=== PATIENT | male | born 1955 ===

== ENCOUNTER 2021-06-03 09:47 | Inpatient (IN) ==
[2021-06-03] MEDS ORDERED: POTASSIUM CHLORIDE RIDER 10 MEQ/100 ML PREMIX IV PRN (09:49)
[2021-06-03] MEDS ORDERED: MAGNESIUM SULF RIDER 2 GM/50 ML PREMIX IV PRN (09:49)
[2021-06-03] MEDS ORDERED: DIAZEPAM 5 MG TABLET PO ONE (10:30)
[2021-06-03] MEDS ORDERED: diphenhydrAMINE CAP 50 MG CAPSULE PO ONE (10:30)
[2021-06-03] MEDS ORDERED: DIAZEPAM 5 MG TABLET ONE (10:36)
[2021-06-03] MEDS ORDERED: diphenhydrAMINE CAP 50 MG CAPSULE ONE (10:37)
[2021-06-03] MEDS: SODIUM CHLORIDE 0.9% 1,000 ML IV SCH ×2 (10:41→18:17)
[2021-06-03 10:43] LABS: Basophils # 0.1 10*3/uL (0.0-0.2); Basophils % 0.9 % (0.0-0.8); Eosinophils # 0.2 10*3/uL (0.0-0.87); Eosinophils % 2.6 % (0.00-10.9); Hematocrit 43.3 VOL% (42.0-52.0); Hemoglobin 14.3 GM/DL (14.0-18.0); Immature Granulocytes % 0.4 %; Immature Granulocytes Absolute 0.03 #; Lymphocytes # 1.8 10*3/uL (1.4-4.0); Lymphocytes % 21.6 % (21.2-54.2); Mean Corpuscular Volume 81.4 FL (87-102); Mean Platelet Volume 10.4 FL (9.6-12.0); Monocytes % 7.5 % (1.7-12.7); Platelet Count 235 T/CUMM (130-400); Red Blood Count 5.32 MC/CUMM (3.8-5.5); Red Cell Distribution Width 13.5 % (9.3-17.3); White Blood Count 8.2 T/CUMM (4-12)
[2021-06-03 10:53] LABS: PT Patient Result 11.4 SECS (10.5-12.0)
[2021-06-03 11:01] LABS: Calcium 9.4 MG/DL (8.5-10.1); Osmolality,Calculated 270.1 MOS/KG (273-304); Potassium 4.3 MMOL/L (3.5-5.1)
[2021-06-03] MEDS ORDERED: HEPARIN/NACL 0.9% 2 UNITS/ML 2,000 UNIT/1,000 ML BAG IV ONE (11:08)
[2021-06-03] MEDS ORDERED: LIDOCAINE 1% 20 ML VIAL ONE (11:08)
[2021-06-03] MEDS ORDERED: NITROGLYCERIN DRIP 50 MG/250 ML BOTTLE IV ONE (11:10)
[2021-06-03] MEDS ORDERED: VERAPAMIL 5 MG/2 ML VIAL ONE (11:10)
[2021-06-03] MEDS ORDERED: MIDAZOLAM 2 MG/2 ML VIAL ONE (11:23)
[2021-06-03] MEDS ORDERED: fentaNYL 100 MCG/2 ML VIAL ONE (11:23)
[2021-06-03] MEDS ORDERED: HEPARIN 5,000 UNIT/1 ML VIAL ONE (11:31)
[2021-06-03] MEDS ORDERED: NITROGLYCERIN SL 0.4 MG TABLET SL PRN (12:10)
[2021-06-03] MEDS ORDERED: ZALEPLON 5 MG CAPSULE PO PRN (12:10)
[2021-06-03] MEDS ORDERED: ACETAMINOPHEN 325 MG TABLET PO PRN (12:10)
[2021-06-03] MEDS ORDERED: ONDANSETRON 4 MG/2 ML VIAL IV PRN (12:10)
[2021-06-03] MEDS ORDERED: allopurinoL 300 MG TABLET PO PRN (12:14)
[2021-06-03] MEDS ORDERED: hydrALAZINE 20 MG/1 ML VIAL IV PRN (12:14)
[2021-06-03] MEDS: PANTOPRAZOLE 40 MG TABLET PO SCH (15:17)
[2021-06-03] MEDS ORDERED: diphenhydrAMINE CAP 25 MG CAPSULE PO PRN (16:11)
[2021-06-03] MEDS ORDERED: MAGNESIUM HYDROXIDE SUSP 30 ML UDCUP PO PRN (16:12)
[2021-06-03] MEDS: FAMOTIDINE 20 MG TABLET PO SCH (21:23)
[2021-06-03] MEDS: ROSUVASTATIN 20 MG TABLET PO SCH (21:23)
[2021-06-03] MEDS: CITALOPRAM 20 MG TABLET PO SCH (21:24)
[2021-06-03] MEDS: carvediloL 3.125 MG TABLET PO SCH (21:24)
[2021-06-03] MEDS: amLODIPine 5 MG TABLET PO SCH (21:24)
[2021-06-03] MEDS: ASCORBIC ACID 500 MG TABLET PO SCH (21:24)
[2021-06-04 05:27] LABS: Basophils # 0.1 10*3/uL (0.0-0.2); Basophils % 0.8 % (0.0-0.8); Eosinophils # 0.4 10*3/uL (0.0-0.87); Eosinophils % 4.8 % (0.00-10.9); Hematocrit 43.5 VOL% (42.0-52.0); Hemoglobin 13.9 GM/DL (14.0-18.0); Immature Granulocytes % 0.3 %; Immature Granulocytes Absolute 0.03 #; Lymphocytes # 2.1 10*3/uL (1.4-4.0); Lymphocytes % 24.1 % (21.2-54.2); Mean Platelet Volume 9.8 FL (9.6-12.0); Monocytes % 9.6 % (1.7-12.7); Neutrophils % 60.4 % (38.7-73.9); Platelet Count 221 T/CUMM (130-400); Red Blood Count 5.18 MC/CUMM (3.8-5.5); Red Cell Distribution Width 13.5 % (9.3-17.3); White Blood Count 8.7 T/CUMM (4-12)
[2021-06-04 05:43] LABS: Calcium 9.1 MG/DL (8.5-10.1); Osmolality,Calculated 275.7 MOS/KG (273-304); Potassium 4.1 MMOL/L (3.5-5.1)
[2021-06-04] MEDS ORDERED: NON-FORMULARY MEDICATION (Aspirin 81 mg Tablet) PO SCH (09:00)
[2021-06-04] MEDS: ASCORBIC ACID 500 MG TABLET PO SCH ×2 (09:45→21:20)
[2021-06-04] MEDS: PANTOPRAZOLE 40 MG TABLET PO SCH (09:45)
[2021-06-04] MEDS: FAMOTIDINE 20 MG TABLET PO SCH ×2 (09:45→21:20)
[2021-06-04] MEDS: carvediloL 3.125 MG TABLET PO SCH ×2 (09:45→21:20)
[2021-06-04] MEDS: ASPIRIN EC 81 MG TABLET PO SCH (09:46)
[2021-06-04] MEDS ORDERED: DEXTROSE 50% 25 GM/50 ML VIAL IV PRN (09:55)
[2021-06-04] MEDS ORDERED: GLUCAGON 1 MG VIAL IM PRN (09:55)
[2021-06-04] MEDS: SODIUM CHLORIDE 0.9% 1,000 ML IV SCH (11:13)
[2021-06-04] MEDS: ALPRAZolam 0.25 MG TABLET PO PRN (18:28)
[2021-06-04] MEDS: CHLORHEXIDINE 0.12% ORAL RINSE 60 ML BOTTLE SWISH/SPIT SCH (21:19)
[2021-06-04] MEDS: ROSUVASTATIN 20 MG TABLET PO SCH (21:20)
[2021-06-04] MEDS: CITALOPRAM 20 MG TABLET PO SCH (21:21)
[2021-06-04] MEDS: amLODIPine 5 MG TABLET PO SCH (21:21)
[2021-06-05 04:43] LABS: ABG Base Excess 1.8 MMOL/L (-2.5-2.5); ABG HCO3 25.9 MMOL/L (20-26); ABG Oxygen Saturation 94.1 % (95-100); ABG PCO2 37.6 MM HG (35-48); ABG PH 7.442 (7.35-7.45); ABG PO2 71.2 MM HG (80-95); ABG TCO2 21.8 MMOL/L (23-27)
[2021-06-05 05:44] LABS: Basophils # 0.1 10*3/uL (0.0-0.2); Basophils % 0.8 % (0.0-0.8); Eosinophils # 0.5 10*3/uL (0.0-0.87); Hematocrit 44.9 VOL% (42.0-52.0); Hemoglobin 14.6 GM/DL (14.0-18.0); Immature Granulocytes % 0.2 %; Immature Granulocytes Absolute 0.02 #; Lymphocytes # 2.4 10*3/uL (1.4-4.0); Lymphocytes % 26.4 % (21.2-54.2); Mean Corpuscular HGB Conc 32.5 GM/DL (32-36); Mean Corpuscular Volume 83.8 FL (87-102); Mean Platelet Volume 10.5 FL (9.6-12.0); Monocytes % 8.4 % (1.7-12.7); Neutrophils % 59.2 % (38.7-73.9); Platelet Count 272 T/CUMM (130-400); Red Blood Count 5.36 MC/CUMM (3.8-5.5); Red Cell Distribution Width 13.6 % (9.3-17.3); White Blood Count 9.1 T/CUMM (4-12)
[2021-06-05 06:07] LABS: Calcium 9.2 MG/DL (8.5-10.1); Osmolality,Calculated 280.4 MOS/KG (273-304); Potassium 3.8 MMOL/L (3.5-5.1)
[2021-06-05 06:10] LABS: Albumin 3.9 G/DL (3.4-5.0); Bilirubin,Total 1.7 MG/DL (0.20-1.00); Calcium 9.4 MG/DL (8.5-10.1); Osmolality,Calculated 276.7 MOS/KG (273-304); Potassium 3.7 MMOL/L (3.5-5.1); Total Protein 7.3 G/DL (6.4-8.2)
[2021-06-05 06:28] LABS: Risk Ratio 4.71; VLDL Cholesterol 20.6 MG/DL
[2021-06-05] MEDS: FAMOTIDINE 20 MG TABLET PO SCH ×2 (08:42→21:31)
[2021-06-05] MEDS: carvediloL 3.125 MG TABLET PO SCH ×2 (08:42→21:31)
[2021-06-05] MEDS: CHLORHEXIDINE 0.12% ORAL RINSE 60 ML BOTTLE SWISH/SPIT SCH ×2 (08:42→21:39)
[2021-06-05] MEDS: ASPIRIN EC 81 MG TABLET PO SCH (08:42)
[2021-06-05] MEDS: PANTOPRAZOLE 40 MG TABLET PO SCH (08:42)
[2021-06-05] MEDS: ASCORBIC ACID 500 MG TABLET PO SCH ×2 (08:42→21:31)
[2021-06-05] MEDS: SODIUM CHLORIDE 0.9% 1,000 ML IV SCH (10:10)
[2021-06-05] MEDS ORDERED: amLODIPine 10 MG TABLET PO ONE (10:19)
[2021-06-05] MEDS ORDERED: DIAZEPAM 5 MG TABLET PO ONE (11:12)
[2021-06-05] MEDS: CHLORHEXIDINE 4% SOLN 118 ML BOTTLE TOP SCH ×2 (15:21→21:39)
[2021-06-05] MEDS: ALPRAZolam 0.25 MG TABLET PO PRN (18:20)
[2021-06-05] MEDS: ROSUVASTATIN 20 MG TABLET PO SCH (21:31)
[2021-06-05] MEDS: CITALOPRAM 20 MG TABLET PO SCH (21:31)
[2021-06-06] MEDS: CHLORHEXIDINE 4% SOLN 118 ML BOTTLE TOP SCH ×2 (04:38→09:28)
[2021-06-06] MEDS ORDERED: VANCOMYCIN 500 MG VIAL ONE (05:31)
[2021-06-06] MEDS ORDERED: VANCOMYCIN 1,000 MG VIAL ONE (05:31)
[2021-06-06] MEDS ORDERED: PAPAVERINE 60 MG/2 ML VIAL ONE (05:31)
[2021-06-06] MEDS ORDERED: CEFUROXIME INJ 1,500 MG in SODIUM CHLORIDE 0.9% 100 ML IV ONE (06:00)
[2021-06-06] MEDS ORDERED: DIAZEPAM 5 MG TABLET PO ONE (06:00)
[2021-06-06] MEDS ORDERED: MIDAZOLAM 10 MG/2 ML VIAL ONE ×4 (06:01→06:02)
[2021-06-06] MEDS ORDERED: SUFentanil 250 MCG/5 ML AMP ONE ×2 (06:02)
[2021-06-06] MEDS ORDERED: HEPARIN/NACL 0.9% 2 UNITS/ML 1,000 UNIT/500 ML BAG IV ONE (06:03)
[2021-06-06 07:36] LABS: ABG Base Excess -0.9 MMOL/L (-2.5-2.5); ABG HCO3 23.4 MMOL/L (20-26); ABG Oxygen Saturation 99.1 % (95-100); ABG PCO2 37.8 MM HG (35-48); ABG PO2 381.1 MM HG (80-95); ABG TCO2 24.6 MMOL/L (23-27); Glucose Heart Surgery 107 MG/DL (74-106); Hemoglobin Heart Surgery 14.1 G/DL (14.0-18.0); Ionized Calcium Arterial 1.15 MMOL/L (1.21-1.46); PCO2 Patient Temp Arterial 37.8 MMHG; PO2 Patient Temp Arterial 381.1 MM HG; Patient Temperature 37 CELCIUS; Sodium Heart/CVR 136 MMOL/L (135-145)
[2021-06-06] MEDS ORDERED: TISSUE ADHESIVE 1 EACH APPLICATOR TOP ONE (07:42)
[2021-06-06 07:43] LABS: Bilirubin,Urine Negative (Negative); Blood, Urine Negative (Negative); Glucose,Urine (UA) Negative (Negative); Ketones,Urine Negative (Negative); Nitrite,Urine Negative (Negative); Protein,Urine Negative; RBC,Urine 6 /HPF (0-4); Urine Appearance CLEAR (Clear); Urine Color Yellow (Yellow); Urine Specific Gravity 1.016 (1.001-1.035); Urine Urobilinogen < 2.0 EU/DL (0.2-1.0)
[2021-06-06] MEDS ORDERED: PHENYLEPHRINE DRIP 40 MG/250 ML PREMIX IV ONE (07:48)
[2021-06-06] MEDS ORDERED: ALBUMIN 5% 25.0 GM/500 ML VIAL IV ONE (07:48)
[2021-06-06] MEDS ORDERED: POTASSIUM CHLORIDE RIDER 20 MEQ/100 ML PREMIX IV ONE (07:48)
[2021-06-06] MEDS ORDERED: CALCIUM CHLORIDE 1,000 MG/10 ML SYRINGE IV ONE (07:49)
[2021-06-06] MEDS ORDERED: NITROPRUSSIDE 50 MG/2 ML VIAL ONE (07:49)
[2021-06-06] MEDS ORDERED: AMINOCAPROIC ACID 5,000 MG/20 ML VIAL ONE (07:57)
[2021-06-06] MEDS ORDERED: CALCIUM CHLORIDE 1,000 MG/10 ML VIAL IV ONE (07:57)
[2021-06-06] MEDS ORDERED: VECURONIUM 10 MG VIAL IV ONE (07:57)
[2021-06-06] MEDS ORDERED: SODIUM CHLORIDE 0.9% 250 ML IV ONE (07:57)
[2021-06-06] MEDS ORDERED: MINERAL OIL/PETROLATUM OPH OINT 3.5 GM TUBE ONE (07:57)
[2021-06-06] MEDS ORDERED: SODIUM CHLORIDE 0.9% 2,000 ML IV ONE (07:57)
[2021-06-06] MEDS ORDERED: LIDOCAINE 2% 5 ML VIAL ONE ×2 (07:57→10:34)
[2021-06-06] MEDS ORDERED: PHENYLEPHRINE DRIP 20 MG/250 ML PREMIX IV ONE (07:57)
[2021-06-06] MEDS ORDERED: SEVOFLURANE 1 UNIT/15 MINUTE INH ONE (07:57)
[2021-06-06] MEDS ORDERED: LACTATED RINGERS 1,000 ML IV ONE (07:57)
[2021-06-06] MEDS ORDERED: ePHEDrine 50 MG/ML VIAL ONE (07:58)
[2021-06-06] MEDS ORDERED: SODIUM CHLORIDE 0.9% 100 ML IV ONE (08:10)
[2021-06-06] MEDS ORDERED: NITROGLYCERIN DRIP 50 MG/250 ML BOTTLE IV ONE (08:42)
[2021-06-06] MEDS ORDERED: amLODIPine 10 MG TABLET PO SCH (09:00)
[2021-06-06 09:04] LABS: Hematocrit Heart Surgery 27.1 PERCENT (42-52); Hemoglobin Heart Surgery 8.7 G/DL (14.0-18.0); PH Patient Temp Venous 7.384; PO2 Patient Temp Venous 48.5 MM HG; Potassium Heart/CVR 4.9 MMOL/L (3.5-5.1); VBG HCO3 23.3 MEQ/L (24-28); VBG PH 7.384; VBG PO2 48.5 MMHG (17-40); VBG Total CO2 22.2 MMOL/L
[2021-06-06] MEDS: SODIUM CHLORIDE 0.9% 1,000 ML IV SCH (09:28)
[2021-06-06] MEDS: PANTOPRAZOLE 40 MG TABLET PO SCH (09:28)
[2021-06-06] MEDS: carvediloL 3.125 MG TABLET PO SCH (09:28)
[2021-06-06] MEDS: ASCORBIC ACID 500 MG TABLET PO SCH (09:28)
[2021-06-06] MEDS: CHLORHEXIDINE 0.12% ORAL RINSE 60 ML BOTTLE SWISH/SPIT SCH ×2 (09:28→20:35)
[2021-06-06] MEDS: FAMOTIDINE 20 MG TABLET PO SCH (09:28)
[2021-06-06] MEDS: ASPIRIN EC 81 MG TABLET PO SCH (09:28)
[2021-06-06 09:30] LABS: Hematocrit Heart Surgery 31.5 PERCENT (42-52); Hemoglobin Heart Surgery 10.2 G/DL (14.0-18.0); PCO2 Patient Temp Venous 36.2 MM HG; PH Patient Temp Venous 7.423; Potassium Heart/CVR 4.9 MMOL/L (3.5-5.1); VBG Base Excess -0.4 MEQ/L (0-4); VBG HCO3 23.8 MEQ/L (24-28); VBG Oxygen Saturation 83.4 %; VBG PCO2 36.2 MMHG (41-51); VBG PH 7.423; VBG Total CO2 21.5 MMOL/L
[2021-06-06 10:02] LABS: Hematocrit Heart Surgery 33.5 PERCENT (42-52); Hemoglobin Heart Surgery 10.9 G/DL (14.0-18.0); PCO2 Patient Temp Venous 34.5 MM HG; PH Patient Temp Venous 7.437; PO2 Patient Temp Venous 36.5 MM HG; Potassium Heart/CVR 5.1 MMOL/L (3.5-5.1); VBG Base Excess -0.4 MEQ/L (0-4); VBG HCO3 23.6 MEQ/L (24-28); VBG Oxygen Saturation 68.8 %; VBG PCO2 34.5 MMHG (41-51); VBG PH 7.437; VBG PO2 36.5 MMHG (17-40); VBG Total CO2 21.1 MMOL/L
[2021-06-06] MEDS ORDERED: FUROSEMIDE 20 MG/2 ML VIAL ONE ×2 (10:27→10:35)
[2021-06-06] MEDS ORDERED: METOPROLOL TARTRATE 5 MG/5 ML VIAL IV ONE (10:27)
[2021-06-06 10:28] LABS: ABG HCO3 22.8 MMOL/L (20-26); ABG Oxygen Saturation 99.1 % (95-100); ABG PCO2 37.5 MM HG (35-48); ABG PH 7.388 (7.35-7.45); ABG TCO2 20.4 MMOL/L (23-27); Glucose Heart Surgery 197 MG/DL (74-106); Hematocrit Heart Surgery 33.4 PERCENT (42-52); Hemoglobin Heart Surgery 10.8 G/DL (14.0-18.0); Ionized Calcium Arterial 1.37 MMOL/L (1.21-1.46); PCO2 Patient Temp Arterial 37.5 MMHG; PH Patient Temp Arterial 7.388; Patient Temperature 37 CELCIUS; Sodium Heart/CVR 133 MMOL/L (135-145)
[2021-06-06] MEDS ORDERED: ALBUMIN 5% 12.5 GM/250 ML VIAL IV ONE (10:28)
[2021-06-06] MEDS ORDERED: MAGNESIUM SULFATE 5 GM/10 ML VIAL IV ONE (10:34)
[2021-06-06] MEDS ORDERED: methylPREDNISolone SOD SUC 1,000 MG/8 ML VIAL ONE (10:34)
[2021-06-06] MEDS ORDERED: ALBUMIN 25% 25 GM/100 ML VIAL IV ONE (10:34)
[2021-06-06] MEDS ORDERED: PROTAMINE SULFATE 250 MG/25 ML VIAL IV ONE (10:35)
[2021-06-06] MEDS ORDERED: PROTAMINE SULFATE 50 MG/5 ML VIAL IV ONE ×2 (10:35→10:45)
[2021-06-06] MEDS ORDERED: SODIUM BICARBONATE 50 MEQ/50 ML VIAL IV ONE (10:35)
[2021-06-06] MEDS ORDERED: MANNITOL 100 GM/500 ML BAG IV ONE (10:35)
[2021-06-06] MEDS ORDERED: DEXTROSE 5% KCL 20 MEQ 20 MEQ/1,000 ML BAG IV ONE (10:35)
[2021-06-06] MEDS ORDERED: HEPARIN 10,000 UNIT/10 ML VIAL ONE (10:35)
[2021-06-06] MEDS ORDERED: hydrALAZINE 20 MG/1 ML VIAL ONE (10:41)
[2021-06-06] MEDS ORDERED: INSULIN REGULAR 100 UNIT/ML IV ONE (11:16)
[2021-06-06] MEDS ORDERED: POTASSIUM CHLORIDE RIDER 10 MEQ/100 ML PREMIX IV PRN (11:16)
[2021-06-06] MEDS ORDERED: LACTATED RINGERS 250 ML IV PRN (11:16)
[2021-06-06] MEDS ORDERED: CHLORHEXIDINE 4% SOLN 118 ML BOTTLE TOP PRN (11:16)
[2021-06-06] MEDS ORDERED: INSULIN REGULAR 100 UNIT/ML IV PRN (11:16)
[2021-06-06] MEDS ORDERED: ACETAMINOPHEN 650 MG SUPP RECTAL PRN (11:16)
[2021-06-06] MEDS ORDERED: VECURONIUM 10 MG VIAL IV PRN ×2 (11:16)
[2021-06-06] MEDS ORDERED: MAGNESIUM SULF RIDER 2 GM/50 ML PREMIX IV PRN (11:16)
[2021-06-06] MEDS ORDERED: NITROPRUSSIDE 100 MG in DEXTROSE 5% 250 ML IV PRN (11:16)
[2021-06-06] MEDS ORDERED: MAGNESIUM SULF RIDER 4 GM/100 ML PREMIX IV PRN (11:16)
[2021-06-06] MEDS ORDERED: PHENYLEPHRINE DRIP 40 MG/250 ML PREMIX IV PRN (11:16)
[2021-06-06] MEDS ORDERED: DEXTROSE 50% 25 GM/50 ML VIAL IV PRN ×2 (11:16)
[2021-06-06] MEDS ORDERED: MIDAZOLAM 10 MG/2 ML VIAL IV PRN (11:16)
[2021-06-06] MEDS ORDERED: ONDANSETRON 4 MG/2 ML VIAL IV PRN (11:16)
[2021-06-06] MEDS ORDERED: CALCIUM CHLORIDE 1,000 MG/10 ML SYRINGE IV PRN (11:16)
[2021-06-06] MEDS: LACTATED RINGERS 1,000 ML IV PRN ×3 (11:20→15:27)
[2021-06-06] MEDS ORDERED: SODIUM CHLORIDE 0.45% 1,000 ML IV SCH ×2 (11:30)
[2021-06-06] MEDS ORDERED: INSULIN REGULAR DRIP 100 ML IV SCH (11:30)
[2021-06-06 11:45] LABS: ABG Base Excess -2.5 MMOL/L (-2.5-2.5); ABG HCO3 22.3 MMOL/L (20-26); ABG Oxygen Saturation 98.2 % (95-100); ABG PCO2 39.2 MM HG (35-48); ABG PH 7.367 (7.35-7.45); ABG TCO2 20.1 MMOL/L (23-27); Glucose Heart Surgery 148 MG/DL (74-106); Hematocrit Heart Surgery 35.9 PERCENT (42-52); Hemoglobin Heart Surgery 11.7 G/DL (14.0-18.0); Potassium Heart/CVR 3.8 MMOL/L (3.5-5.1)
[2021-06-06] MEDS: POTASSIUM CHLORIDE RIDER 20 MEQ/100 ML PREMIX IV PRN ×3 (12:00→16:01)
[2021-06-06 12:03] LABS: INR 1.2; PT Patient Result 12.9 SECS (10.5-12.0); Partial Thromboplastin Time 29.5 SECS (23.9-33.8)
[2021-06-06 12:10] LABS: CKMB % 9.7 %
[2021-06-06 12:13] LABS: High Sensitive Troponin I* 7386.5 ng/L (0-78)
[2021-06-06 12:16] LABS: Albumin 3.2 G/DL (3.4-5.0); Calcium 8.5 MG/DL (8.5-10.1); Osmolality,Calculated 280.5 MOS/KG (273-304); Potassium 3.8 MMOL/L (3.5-5.1); Total Protein 5.6 G/DL (6.4-8.2)
[2021-06-06 12:18] LABS: Basophils % 0.3 % (0.0-0.8); Eosinophils # 0.2 10*3/uL (0.0-0.87); Eosinophils % 1.5 % (0.00-10.9); Hematocrit 34.6 VOL% (42.0-52.0); Hemoglobin 11.4 GM/DL (14.0-18.0); Immature Granulocytes % 0.6 %; Immature Granulocytes Absolute 0.07 #; Lymphocytes # 1.1 10*3/uL (1.4-4.0); Lymphocytes % 9.8 % (21.2-54.2); Mean Corpuscular HGB Conc 32.9 GM/DL (32-36); Mean Corpuscular Volume 83.8 FL (87-102); Mean Platelet Volume 10.3 FL (9.6-12.0); Monocytes % 6.3 % (1.7-12.7); Neutrophils % 81.5 % (38.7-73.9); Platelet Count 205 T/CUMM (130-400); Red Blood Count 4.13 MC/CUMM (3.8-5.5); Red Cell Distribution Width 13.2 % (9.3-17.3); White Blood Count 11.5 T/CUMM (4-12)
[2021-06-06 12:37] LABS: Band Neutrophils 2 % (0-10); Eosinophils 4 % (0-10); Lymphocytes 9 % (20-55); Segmented Neutrophils 83 % (50-85); Total Cells Counted 100
[2021-06-06 12:39] LABS: Atypical Lymphocytes Few; Platelet Estimate Adequate
[2021-06-06 12:40] LABS: Hypochromasia 1+; Microcytosis 1+
[2021-06-06 13:28] LABS: ABG Base Excess -2.7 MMOL/L (-2.5-2.5); ABG HCO3 22.2 MMOL/L (20-26); ABG Oxygen Saturation 98.6 % (95-100); ABG PCO2 38.9 MM HG (35-48); ABG PH 7.367 (7.35-7.45); Glucose Heart Surgery 143 MG/DL (74-106); Hematocrit Heart Surgery 35.4 PERCENT (42-52); Hemoglobin Heart Surgery 11.5 G/DL (14.0-18.0); Potassium Heart/CVR 4.1 MMOL/L (3.5-5.1)
[2021-06-06] MEDS: ALBUMIN 5% 12.5 GM/250 ML VIAL IV PRN ×2 (14:04→15:40)
[2021-06-06] MEDS: MIDAZOLAM 2 MG/2 ML VIAL IV PRN ×2 (15:02→15:16)
[2021-06-06] MEDS: MORPHINE 10 MG/1 ML VIAL IV PRN (15:11)
[2021-06-06] MEDS: DEXMEDETOMIDINE 200 MCG in SODIUM CHLORIDE 0.9% 48 ML IV PRN ×3 (15:30→21:43)
[2021-06-06 15:40] LABS: ABG Base Excess -2.7 MMOL/L (-2.5-2.5); ABG HCO3 22.3 MMOL/L (20-26); ABG Oxygen Saturation 96.3 % (95-100); ABG PCO2 39.2 MM HG (35-48); ABG PH 7.372 (7.35-7.45); ABG PO2 96.3 MM HG (80-95); ABG TCO2 23.5 MMOL/L (23-27); Glucose Heart Surgery 157 MG/DL (74-106); Hemoglobin Heart Surgery 11.3 G/DL (14.0-18.0); Potassium Heart/CVR 4.1 MMOL/L (3.5-5.1)
[2021-06-06] MEDS: INSULIN REGULAR 100 UNIT/ML SUBCUT SCH ×2 (16:06→19:58)
[2021-06-06] MEDS: CEFUROXIME INJ 1,500 MG in SODIUM CHLORIDE 0.9% 100 ML IV SCH (18:42)
[2021-06-06 19:35] LABS: ABG Base Excess -2.9 MMOL/L (-2.5-2.5); ABG HCO3 21.9 MMOL/L (20-26); ABG PCO2 40.7 MM HG (35-48); ABG PO2 97.9 MM HG (80-95); ABG TCO2 20.3 MMOL/L (23-27); Glucose Heart Surgery 191 MG/DL (74-106); Hematocrit Heart Surgery 34.3 PERCENT (42-52); Hemoglobin Heart Surgery 11.1 G/DL (14.0-18.0); Potassium Heart/CVR 4.4 MMOL/L (3.5-5.1)
[2021-06-06 20:01] LABS: CKMB % 6.9 %
[2021-06-06 20:06] LABS: High Sensitive Troponin I* 7012.1 ng/L (0-78)
[2021-06-06] MEDS ORDERED: DEXMEDETOMIDINE 400 MCG in SODIUM CHLORIDE 0.9% 96 ML IV PRN (21:03)
[2021-06-07] MEDS: LACTATED RINGERS 1,000 ML IV PRN (00:20)
[2021-06-07] MEDS: INSULIN REGULAR 100 UNIT/ML SUBCUT SCH ×7 (00:22→23:54)
[2021-06-07 02:00] LABS: ABG HCO3 21.9 MMOL/L (20-26); ABG Oxygen Saturation 96.8 % (95-100); ABG PCO2 40.3 MM HG (35-48); ABG PH 7.352 (7.35-7.45); ABG PO2 93.8 MM HG (80-95); ABG TCO2 20.1 MMOL/L (23-27); Glucose Heart Surgery 192 MG/DL (74-106); Hemoglobin Heart Surgery 11.4 G/DL (14.0-18.0); Potassium Heart/CVR 4.3 MMOL/L (3.5-5.1)
[2021-06-07] MEDS: ALBUMIN 5% 12.5 GM/250 ML VIAL IV PRN (03:28)
[2021-06-07] MEDS ORDERED: FUROSEMIDE 40 MG/4 ML VIAL IV ONE (04:27)
[2021-06-07 04:55] LABS: ABG Base Excess -2.9 MMOL/L (-2.5-2.5); ABG Oxygen Saturation 94.9 % (95-100); ABG PCO2 42.6 MM HG (35-48); ABG PH 7.338 (7.35-7.45); ABG PO2 80.4 MM HG (80-95); ABG TCO2 20.9 MMOL/L (23-27); Glucose Heart Surgery 168 MG/DL (74-106); Hematocrit Heart Surgery 31.3 PERCENT (42-52); Hemoglobin Heart Surgery 10.1 G/DL (14.0-18.0); Potassium Heart/CVR 4.2 MMOL/L (3.5-5.1)
[2021-06-07 05:03] LABS: Basophils % 0.1 % (0.0-0.8); Hematocrit 30.2 VOL% (42.0-52.0); Hemoglobin 9.9 GM/DL (14.0-18.0); Immature Granulocytes % 0.4 %; Immature Granulocytes Absolute 0.03 #; Lymphocytes # 0.7 10*3/uL (1.4-4.0); Lymphocytes % 8.4 % (21.2-54.2); Mean Corpuscular HGB Conc 32.8 GM/DL (32-36); Mean Corpuscular Volume 85.6 FL (87-102); Mean Platelet Volume 10.3 FL (9.6-12.0); Monocytes % 5.9 % (1.7-12.7); Neutrophils % 85.2 % (38.7-73.9); Platelet Count 158 T/CUMM (130-400); Red Blood Count 3.53 MC/CUMM (3.8-5.5); Red Cell Distribution Width 13.6 % (9.3-17.3); White Blood Count 8.5 T/CUMM (4-12)
[2021-06-07] MEDS: POTASSIUM CHLORIDE RIDER 20 MEQ/100 ML PREMIX IV PRN (05:03)
[2021-06-07] MEDS: MORPHINE 10 MG/1 ML VIAL IV PRN ×2 (05:14→07:06)
[2021-06-07 05:27] LABS: CKMB % 5.6 %
[2021-06-07 05:31] LABS: Hypochromasia Slight; Lymphocytes 11 % (20-55); Microcytosis Slight; Ovalocytes Slight; Platelet Estimate Adequate; Segmented Neutrophils 85 % (50-85); Total Cells Counted 100
[2021-06-07 05:32] LABS: High Sensitive Troponin I* 4408.2 ng/L (0-78)
[2021-06-07 05:33] LABS: Albumin 3.4 G/DL (3.4-5.0); Bilirubin,Direct 0.12 MG/DL (0.0-0.20); Bilirubin,Total 0.4 MG/DL (0.20-1.00); Calcium 7.9 MG/DL (8.5-10.1); Osmolality,Calculated 280.7 MOS/KG (273-304); Potassium 4.1 MMOL/L (3.5-5.1); Total Protein 5.7 G/DL (6.4-8.2)
[2021-06-07] MEDS: CEFUROXIME INJ 1,500 MG in SODIUM CHLORIDE 0.9% 100 ML IV SCH ×2 (06:39→19:56)
[2021-06-07] MEDS: ASPIRIN EC 325 MG TABLET PO SCH (08:55)
[2021-06-07] MEDS: CHLORHEXIDINE 0.12% ORAL RINSE 60 ML BOTTLE SWISH/SPIT SCH ×3 (09:00→20:29)
[2021-06-07] MEDS ORDERED: ACETAMINOPHEN 325 MG TABLET PO PRN (09:07)
[2021-06-07] MEDS ORDERED: ONDANSETRON 4 MG/2 ML VIAL IV PRN (09:07)
[2021-06-07] MEDS ORDERED: MAGNESIUM SULF RIDER 4 GM/100 ML PREMIX IV PRN (09:07)
[2021-06-07] MEDS ORDERED: POTASSIUM CHLORIDE 20 MEQ TABLET PO PRN (09:07)
[2021-06-07] MEDS ORDERED: MAGNESIUM SULF RIDER 2 GM/50 ML PREMIX IV PRN (09:07)
[2021-06-07] MEDS ORDERED: ALUMINUM/MAGNES/SIMETH MAX STR 30 ML UDCUP PO PRN (09:07)
[2021-06-07] MEDS ORDERED: GLUCAGON 1 MG VIAL IM PRN (09:07)
[2021-06-07] MEDS ORDERED: SODIUM CHLOR 0.45% KCL 20 MEQ 20 MEQ/1,000 ML BAG IV SCH (09:07)
[2021-06-07] MEDS ORDERED: DEXTROSE 50% 25 GM/50 ML VIAL IV PRN (09:07)
[2021-06-07] MEDS ORDERED: MAGNESIUM HYDROXIDE SUSP 30 ML UDCUP PO PRN (09:07)
[2021-06-07] MEDS: DOCUSATE SODIUM 100 MG CAPSULE PO SCH (09:32)
[2021-06-07] MEDS: FERROUS SULFATE 325 MG TABLET PO SCH (09:32)
[2021-06-07] MEDS: PANTOPRAZOLE 40 MG TABLET PO SCH (09:32)
[2021-06-07 11:13] LABS: CKMB % 5.2 %; High Sensitive Troponin I* 3922.4 ng/L (0-78)
[2021-06-07] MEDS: oxyCODONE/ACETAMINOPHEN 5-325 MG TABLET PO PRN ×2 (11:40→15:10)
[2021-06-07] MEDS: HYDROmorphone 2 MG/1 ML VIAL IV PRN ×3 (16:05→23:55)
[2021-06-07] MEDS: ASCORBIC ACID 500 MG TABLET PO SCH (20:10)
[2021-06-07] MEDS: CITALOPRAM 20 MG TABLET PO SCH (20:10)
[2021-06-07] MEDS: ZALEPLON 5 MG CAPSULE PO PRN (20:10)
[2021-06-07] MEDS: ROSUVASTATIN 20 MG TABLET PO SCH (20:10)
[2021-06-08 04:07] LABS: Basophils % 0.1 % (0.0-0.8); Hematocrit 32.8 VOL% (42.0-52.0); Hemoglobin 10.3 GM/DL (14.0-18.0); Immature Granulocytes % 0.9 %; Immature Granulocytes Absolute 0.16 #; Lymphocytes # 1.1 10*3/uL (1.4-4.0); Lymphocytes % 5.8 % (21.2-54.2); Mean Corpuscular HGB Conc 31.4 GM/DL (32-36); Mean Corpuscular Volume 87.7 FL (87-102); Monocytes % 11.2 % (1.7-12.7); Platelet Count 252 T/CUMM (130-400); Red Blood Count 3.74 MC/CUMM (3.8-5.5); Red Cell Distribution Width 14.4 % (9.3-17.3); White Blood Count 18.3 T/CUMM (4-12)
[2021-06-08 04:23] LABS: Albumin 3.7 G/DL (3.4-5.0); Bilirubin,Direct 0.1 MG/DL (0.0-0.20); Bilirubin,Total 0.5 MG/DL (0.20-1.00); Calcium 8.5 MG/DL (8.5-10.1); Potassium 4.7 MMOL/L (3.5-5.1); Total Protein 6.6 G/DL (6.4-8.2)
[2021-06-08 04:25] LABS: Albumin 3.7 G/DL (3.4-5.0); Bilirubin,Direct 0.11 MG/DL (0.0-0.20); Bilirubin,Indirect 0.9 MG/DL (0.0-1.0); CKMB % 3.2 %; Total Protein 6.3 G/DL (6.4-8.2)
[2021-06-08] MEDS: INSULIN REGULAR 100 UNIT/ML SUBCUT SCH ×6 (04:26→23:36)
[2021-06-08 04:32] LABS: High Sensitive Troponin I* 2318.4 ng/L (0-78)
[2021-06-08 04:37] LABS: Hypochromasia 1+; Lymphocytes 10 % (20-55); Microcytosis 1+; Platelet Estimate Adequate; Segmented Neutrophils 85 % (50-85); Total Cells Counted 100
[2021-06-08] MEDS ORDERED: FUROSEMIDE 40 MG/4 ML VIAL IV ONE (06:00)
[2021-06-08] MEDS: HYDROmorphone 2 MG/1 ML VIAL IV PRN (06:09)
[2021-06-08] MEDS ORDERED: oxyCODONE/ACETAMINOPHEN 5-325 MG TABLET PO PRN (06:54)
[2021-06-08] MEDS ORDERED: SIMETHICONE CHEW 125 MG TABLET PO PRN (08:21)
[2021-06-08] MEDS: CHLORHEXIDINE 0.12% ORAL RINSE 60 ML BOTTLE SWISH/SPIT SCH ×2 (09:00→20:40)
[2021-06-08] MEDS ORDERED: METOPROLOL TARTRATE 25 MG TABLET PO SCH (09:00)
[2021-06-08] MEDS: DOCUSATE SODIUM 100 MG CAPSULE PO SCH (09:29)
[2021-06-08] MEDS: FERROUS SULFATE 325 MG TABLET PO SCH (09:29)
[2021-06-08] MEDS: ASPIRIN EC 325 MG TABLET PO SCH (09:30)
[2021-06-08] MEDS: ASCORBIC ACID 500 MG TABLET PO SCH ×2 (09:30→20:40)
[2021-06-08] MEDS: CHLORTHALIDONE 25 MG TABLET PO SCH (09:31)
[2021-06-08] MEDS: PANTOPRAZOLE 40 MG TABLET PO SCH (09:33)
[2021-06-08] MEDS: POLYETHYLENE GLYCOL POWDER 17 GM PACK PO SCH (09:34)
[2021-06-08] MEDS: CITALOPRAM 20 MG TABLET PO SCH (20:40)
[2021-06-08] MEDS: ROSUVASTATIN 20 MG TABLET PO SCH (20:40)
[2021-06-09] MEDS: ZALEPLON 5 MG CAPSULE PO PRN (03:11)
[2021-06-09 04:09] LABS: Basophils % 0.1 % (0.0-0.8); Hematocrit 31.1 VOL% (42.0-52.0); Hemoglobin 9.8 GM/DL (14.0-18.0); Immature Granulocytes % 0.9 %; Immature Granulocytes Absolute 0.11 #; Lymphocytes # 1.1 10*3/uL (1.4-4.0); Lymphocytes % 8.7 % (21.2-54.2); Mean Corpuscular HGB Conc 31.5 GM/DL (32-36); Mean Corpuscular Volume 86.4 FL (87-102); Mean Platelet Volume 10.9 FL (9.6-12.0); Monocytes % 10.6 % (1.7-12.7); Neutrophils % 79.7 % (38.7-73.9); Platelet Count 197 T/CUMM (130-400); Red Cell Distribution Width 14.1 % (9.3-17.3); White Blood Count 12.2 T/CUMM (4-12)
[2021-06-09 04:30] LABS: Albumin 3.3 G/DL (3.4-5.0); Bilirubin,Direct 0.12 MG/DL (0.0-0.20); Bilirubin,Total 0.4 MG/DL (0.20-1.00); Calcium 8.4 MG/DL (8.5-10.1); Potassium 3.6 MMOL/L (3.5-5.1); Total Protein 6.4 G/DL (6.4-8.2)
[2021-06-09 04:31] LABS: Hypochromasia 1+; Lymphocytes 9 % (20-55); Microcytosis 1+; Platelet Estimate Adequate; Segmented Neutrophils 81 % (50-85); Total Cells Counted 100
[2021-06-09] MEDS: INSULIN REGULAR 100 UNIT/ML SUBCUT SCH ×2 (04:41→08:49)
[2021-06-09 04:50] LABS: Alanine Aminotransferase 33 U/L (16-61); Albumin 3.4 G/DL (3.4-5.0); Alkaline Phosphatase 45 U/L (45-117); Aspartate Amino Transferase 21 U/L (0-37); Bilirubin,Indirect 0.3 MG/DL (0.0-1.0); Total Protein 5.9 G/DL (6.4-8.2)
[2021-06-09] MEDS: CHLORTHALIDONE 25 MG TABLET PO SCH (09:24)
[2021-06-09] MEDS: DOCUSATE SODIUM 100 MG CAPSULE PO SCH (09:24)
[2021-06-09] MEDS: FERROUS SULFATE 325 MG TABLET PO SCH (09:24)
[2021-06-09] MEDS: ASPIRIN EC 325 MG TABLET PO SCH (09:24)
[2021-06-09] MEDS: ASCORBIC ACID 500 MG TABLET PO SCH ×2 (09:24→20:58)
[2021-06-09] MEDS: PANTOPRAZOLE 40 MG TABLET PO SCH (09:24)
[2021-06-09] MEDS: POLYETHYLENE GLYCOL POWDER 17 GM PACK PO SCH (09:25)
[2021-06-09] MEDS: METOPROLOL TARTRATE 25 MG TABLET PO SCH ×2 (09:30→20:58)
[2021-06-09] MEDS: CHLORHEXIDINE 0.12% ORAL RINSE 60 ML BOTTLE SWISH/SPIT SCH ×2 (09:31→20:59)
[2021-06-09] MEDS: CITALOPRAM 20 MG TABLET PO SCH (20:58)
[2021-06-09] MEDS: ROSUVASTATIN 20 MG TABLET PO SCH (20:58)
[2021-06-10] MEDS: ZALEPLON 5 MG CAPSULE PO PRN (03:29)
[2021-06-10 04:13] LABS: Basophils % 0.2 % (0.0-0.8); Eosinophils # 0.1 10*3/uL (0.0-0.87); Hematocrit 30.1 VOL% (42.0-52.0); Hemoglobin 9.4 GM/DL (14.0-18.0); Immature Granulocytes % 0.9 %; Immature Granulocytes Absolute 0.09 #; Lymphocytes % 19.7 % (21.2-54.2); Mean Corpuscular HGB Conc 31.2 GM/DL (32-36); Mean Corpuscular Volume 87.2 FL (87-102); Mean Platelet Volume 11.2 FL (9.6-12.0); Monocytes % 11.7 % (1.7-12.7); Neutrophils % 66.5 % (38.7-73.9); Platelet Count 233 T/CUMM (130-400); Red Blood Count 3.45 MC/CUMM (3.8-5.5); Red Cell Distribution Width 13.8 % (9.3-17.3); White Blood Count 10.3 T/CUMM (4-12)
[2021-06-10 04:44] LABS: Calcium 8.4 MG/DL (8.5-10.1); Potassium 3.8 MMOL/L (3.5-5.1)
[2021-06-10 07:59] VITALS: BP 122/81
[2021-06-10] MEDS: PANTOPRAZOLE 40 MG TABLET PO SCH (09:37)
[2021-06-10] MEDS: METOPROLOL TARTRATE 25 MG TABLET PO SCH (09:37)
[2021-06-10] MEDS: ASPIRIN EC 325 MG TABLET PO SCH (09:37)
[2021-06-10] MEDS: DOCUSATE SODIUM 100 MG CAPSULE PO SCH (09:37)
[2021-06-10] MEDS: FERROUS SULFATE 325 MG TABLET PO SCH (09:37)
[2021-06-10] MEDS: ASCORBIC ACID 500 MG TABLET PO SCH (09:37)
[2021-06-10] MEDS: CHLORTHALIDONE 25 MG TABLET PO SCH (09:38)
[2021-06-10] MEDS: POLYETHYLENE GLYCOL POWDER 17 GM PACK PO SCH (09:44)
[2021-06-10] MEDS: CHLORHEXIDINE 0.12% ORAL RINSE 60 ML BOTTLE SWISH/SPIT SCH (09:45)
== END 2021-06-10 11:55 | disposition home health service (06) | DRG 234 ==
LOC: N.CL 09:47 → N.TELEN 12:08 → N.CVR 06-06 10:49 → N.ICU 06-07 07:49 → N.TELES 06-09 13:53
PROVIDERS: ADMIT Internal Medicine Cardiovascular Disease; ATTEND Internal Medicine Cardiovascular Disease